=== PATIENT | female | born 1980 | race Caucasian/White ===

== ENCOUNTER 2017-11-03 20:17 | Emergency (ER) | payer MEDICAID ==
[~2017-11-03] VITALS: Ht 175.3 cm; Wt 49.9 kg
[2017-11-03] MEDS ORDERED: TORADOL IM STA (20:39)
[2017-11-03] MEDS ORDERED: TORADOL ONE (20:46)
--- NOTE | 2017-11-03 20:57 | ER.PDOC ---
General Chief Complaint: Extremities Stated Complaint: FOOT PAIN Time seen by MD: 20:54 Source: patient Exam Limitations: no limitations History of Present Illness Initial Comments Left foot and ankle pain for 1 week. Does not recall injury but she possibly might have injured it against her wheel chair. Onset: last week Severity: moderate Allergies: Coded Allergies: Sulfa (Sulfonamide Antibiotics) (Verified Allergy, Unknown, 11/03/17) cephalexin (Verified Allergy, Unknown, 11/03/17) ciprofloxacin (Verified Allergy, Unknown, 11/03/17) vancomycin (Verified Allergy, Unknown, 11/03/17) Past Medical History Medical History: asthma Surgical History: back, cholecystectomy, LMP (females 10-50): this week Social History Smoking: less than 1 pack/day Alcohol Use: none Drug Use: none Review of Systems Constitutional: no symptoms reported Respiratory: no symptoms reported Cardiovascular: no symptoms reported Gastrointestinal: no symptoms reported Musculoskeletal: see HPI All Other Systems: Reviewed and Negative Physical Exam General Appearance: Alert, No Apparent Distress Foot: tenderness (left with contracture) Ankle: tenderness (left) Neuro: sensation nml Vascular: no vascular compromise Tendons: tendon function nml Leg/Knee/Thigh: uninjured above ankle Head/ENT: nml inspection, pharynx nml Neck/Back: nml inspection, non-tender Resp/CVS: no resp distress Abdomen: non-tender, no organomegaly Results/Orders Results/Orders Laboratory Tests Test 11/03/17 21:15 Urine Collection Type CATH Urine Color STRAW (YELLOW) Urine Appearance SLIGHTLY CLOUDY (CLEAR) Urine Bilirubin NEGATIVE MG/DL (NEGATIVE) Urine Ketones NEGATIVE (NEGATIVE) Urine Specific [place] 1.010 (1.005-1.035) Urine pH 6.5 (5.0-6.0) Urine Protein NEGATIVE (NEGATIVE) Urine Urobilinogen NORMAL (NEGATIVE) Urine Nitrate NEGATIVE (NEGATIVE) Urine Leukocyte Esterase 100/ul 1+ (NEGATIVE) Urine Blood NEGATIVE (NEGATIVE) Urine RBC NONE SEEN RBC/HPF (NONE Urine WBC 5-10 WBC/HPF (0-2) Urine Squamous Epithelial Cells RARE #/HPF (FEW) Urine Bacteria RARE (NONE SEEN) Urine Glucose NORMAL (NEGATIVE) Administered Medications Medications (Trade) Dose Ordered Sig/Jed Route PRN Reason Start Time Stop Time Status Last Admin Dose Admin Ketorolac Tromethamine (Toradol) 60 mg STAT STAT IM 11/03/17 20:39 11/03/17 20:40 DC 11/03/17 20:52 EKG/XRAY/CT/US XRAY Comments: No fracture of left foot or ankle Departure Time of Disposition: 21:38 Disposition: 01 HOME, SELF-CARE Impression: Primary Impression: Foot pain, left Additional Impressions: Ankle pain, left UTI (urinary tract infection) Condition: Stable Referrals: PCP,UNKNOWN (PCP) PRIMARY CARE PROVIDER Additional Instructions: Macrobid Continue [place] at home F/U with your PCP in 3-4 days Duration or Time Spent with Pa: 30 mins Problem Qualifiers Additional Impressions: Ankle pain, left Chronicity: acute Qualified Codes: M25.572 - Pain in left ankle and joints of left foot UTI (urinary tract infection) Urinary tract infection type: site unspecified Hematuria presence: without hematuria Qualified Codes: N39.0 - Urinary tract infection, site not specified MIKY DOBSON MD Nov 03, 2017 20:57
--- NOTE | 2017-11-03 21:10 | DIREP ---
PROCEDURE:XRAY FOOT MIN 3 VWS-LT COMPARISON:[facility], , XRAY ANKLE MIN 3VWS-LT, 11/03/2017, 08:30 PM. INDICATIONS:left foot pain FINDINGS: BONES:There are contractures involving the left foot and ankle. Bones are osteopenic. There are degenerative changes. No definite acute fracture, given the limitation of positioning JOINTS:Normal. SOFT TISSUES:Normal. OTHER:No additional findings. CONCLUSION:Fracture is not identified. There are contractures, with osteopenia. Dictated by: Lemuel Pimentel MD on 11/03/2017 at 09:09 PM
--- NOTE | 2017-11-03 21:10 | NUR ---
Patient's mother called, I informed mother that we were not allowed to give information over the phone unless we had the patients consent. Informed patient that mother had called. Patient stated that we could give information over the phone to her mother.
--- NOTE | 2017-11-03 21:11 | DIREP ---
PROCEDURE:XRAY ANKLE MIN 3VWS-LT COMPARISON:None. INDICATIONS:FOOT PAIN FINDINGS: BONES:No fracture is identified. There degenerative changes, at the ankle. Contractures are noted. There is osteopenia. JOINTS:Normal. SOFT TISSUES:Normal. OTHER:No additional findings. CONCLUSION:Contractures, osteopenia, degenerative change. No fracture is identified Dictated by: Lemuel Pimentel MD on 11/03/2017 at 09:10 PM
[2017-11-03 21:20] LABS: BILIRUBIN,URINE NEGATIVE (NEGATIVE); UROBILINOGEN,URINE NORMAL (NEGATIVE)
--- NOTE | 2017-11-03 21:24 | NUR ---
accidently departed patient mistakenly deprated from [facility], patient remains in room in unchanged condition
[2017-11-03 21:30] LABS: APPEARANCE,URINE SLIGHTLY CLOUDY (CLEAR); UA COLOR STRAW (YELLOW)
--- NOTE | 2017-11-03 21:48 | NUR ---
departed pateint discharged from ed , will await in room until family comes to pick patient up
[2017-11-03 21:49] VITALS: BP 108/60
--- NOTE | 2017-11-03 22:49 | NUR ---
Transportation Patients mother arrived to pick patient up. Patient in stable condition and in the care of her mother at departure.
== END 2017-11-03 21:24 | disposition other institution (70) ==
LOC: ER 20:17 → EDBD 20:17 → ER 21:24
DX: M25.572 Pain in left ankle and joints of left foot (principal); N39.0 Urinary tract infection, site not specified; J45.909 Unspecified asthma, uncomplicated; F17.200 Nicotine dependence, unspecified, uncomplicated; Z88.1 Allergy status to other antibiotic agents; Z88.2 Allergy status to sulfonamides; Z90.49 Acquired absence of other specified parts of digestive tract
CPT/HCPCS: 73610; 73630; 81000; 87077; 87086; 87186; 96372; 99285; J1885